=== PATIENT | male | born 1975 | race Caucasian/White ===

== ENCOUNTER 2021-04-25 06:12 | Emergency (ER) | payer OTHER ==
[~2021-04-25] VITALS: Ht 177.8 cm; Wt 79.4 kg
--- NOTE | 2021-04-25 06:45 | NUR ---
Dr. Morales at bedside for MSE.
--- NOTE | 2021-04-25 06:51 | NUR ---
Xray at bedside.
[2021-04-25] MEDS ORDERED: CEphaleXIN 500 MG CAPSULE PO ONE (07:15)
[2021-04-25] MEDS ORDERED: SULFAMETH/TRIMETH 800/160 MG TABLET PO ONE (07:15)
[2021-04-25] MEDS ORDERED: SULFAMETH/TRIMETH 800/160 MG TABLET ONE (07:19)
[2021-04-25] MEDS ORDERED: CEphaleXIN 500 MG CAPSULE ONE (07:19)
[2021-04-25] MEDS ORDERED: SULF1TAB48 PO (07:33)
[2021-04-25] MEDS ORDERED: CEPH500C2 PO (07:33)
[2021-04-25 07:42] VITALS: BP 140/77
--- NOTE | 2021-04-25 07:43 | NUR ---
Patient does not wish to proceed with medical care recommended by (Andrew). Patient given information related to possible complications, up to and including , which could occur as a result of leaving the hospital at this time. Patient verbalizes understanding of risks involved due to leaving against medical advice. Patient has signed AMA form.
== END 2021-04-25 07:44 | disposition left against medical advice (07) ==
LOC: ER 06:18
DX: L02.511 Cutaneous abscess of right hand (principal); S61.240A Puncture wound with foreign body of right index finger without damage to nail, initial encounter; L03.011 Cellulitis of right finger; W25.XXXA Contact with sharp glass, initial encounter; W45.8XXA Other foreign body or object entering through skin, initial encounter; Y92.89 Other specified places as the place of occurrence of the external cause; F17.210 Nicotine dependence, cigarettes, uncomplicated; Z59.00 Homelessness unspecified
CPT/HCPCS: 73130; A4663